=== PATIENT | female | born 1975 | race Caucasian/White ===

== ENCOUNTER 2023-08-06 14:45 | Outpatient (RCR) | payer OTHER, SELFPAY | END 2023-12-04 23:59 | disposition home or self-care (01) | PROVIDERS: PCP Family Medicine; Visit Provider Family Medicine | DX: M79.605 Pain in left leg (principal); R20.2 Paresthesia of skin; Z51.89 Encounter for other specified aftercare | CPT/HCPCS: 97012; 97110; 97140; 97162 ==

== ENCOUNTER 2023-08-17 07:46 | Outpatient (CLI) | payer OTHER, SELFPAY | END 2023-08-17 07:47 | disposition home or self-care (01) | LOC: INJ CL 07:47 | PROVIDERS: PCP Family Medicine; Visit Provider Family Medicine | DX: M54.16 Radiculopathy, lumbar region (principal) | CPT/HCPCS: 64483; J1100; Q9966 ==